=== PATIENT | female | born 2000 | race Asian ===

== ENCOUNTER 2020-02-03 19:28 | Emergency (ER) | payer OTHER, MEDICAID, SELFPAY ==
[2020-02-03 19:29] VITALS: BP 129/74; PULSE 90; RESP 16; TEMP 35.3; O2SAT 99; BMI 23.6
--- NOTE | 2020-02-03 20:03 | ED.DCSUM_ITS ---
History of Present Illness Chief Complaint: General Illness Detail of Chief Complaint: I need a test for strep, Covid, and STDs Informant: Patient Narrative: Patient presents with cough for the past couple of days. No fever or chills. She states her friends believe she may have Covid and she is questing a test. She also states that she has a slight hoarse voice and her friends also think she has strep and she is requesting a strep test. She also requests STD testing today that she is a vaginal odor but no discharge. She does have a history of STDs. Her last menstrual cycle was last week. Past Medical History - Allergies and Home Meds Allergies/Adverse Reactions: Allergies No Known Allergies Allergy (Verified 02/03/20 19:31) Primary Care Physician: NOT,DEFINED [Primary Care Provider] - Past Medical History: None Review of Systems General: Denies: Chills, Fever Eyes: Denies: Visual changes - bilaterally ENT: Reports: - - Hoarse voice. Denies: Bilateral ear pain Cardiovascular: Denies: Chest pain Respiratory: Reports: Cough. Denies: Dyspnea Gastrointestinal: Denies: Abdominal pain Musculoskeletal: Denies: Swelling, Extremity Pain Skin: Denies: Rash Neurological: Denies: Headache Hematologic: Denies: Easy bruising, Easy bleeding Allergy: Denies: Uticaria Physical Exam Vital Signs/Narrative: Vital Signs Temp Pulse Resp BP Pulse Ox 02/03/20 19:29 95.6 F L 90 16 129/74 H 99 Inital Vital Signs reviewed: Yes General: Well nourished, Well developed Head: Normocephalic ENT: Moist mucous membranes, - - 2+ bilateral tonsils with mild erythema. Uvula midline. Patient tolerating secretions well and has a strong voice. Neck: Supple Cardiovascular: Regular rate, Regular rhythm Respiratory: No distress, CTA bilaterally Abdomen: Soft, Nontender Skin: Normal color Neurological: Alert, Oriented x3 Psychological: Normal affect Diagnostic/Tx/Re-eval - Medical Decision Making Patient be swabbed for strep and Covid and urine will be sent for STD testing. Advised her that this would take a couple hours for all test results to come ba ck. We will let her go home at this time and call her with any positive test results. She will be referred to local PCP to establish primary care. ED Disposition - Plan for ED Patient: Disposition: Home or Assisted Living Diagnosis: URI (upper respiratory infection) Instructions: ED URI Viral Referrals: Nona Turner MD [STAFF PHYSICIAN] - As soon as possible
--- NOTE | 2020-02-03 22:09 | ED.RN ---
this nurse called pt and updated pt on negative results for covid and strep, per Dr. Ruby, and pt [facility] urine chlamydia and gonorrhea testing. pt verbalized adequate understanding.
== END 2020-02-03 20:29 | disposition home or self-care (01) ==
LOC: ED 20:29
PROVIDERS: Emergency Provider Emergency Medicine
DX: J06.9 Acute upper respiratory infection, unspecified (principal)
CPT/HCPCS: 87426; 87880; 99282

== ENCOUNTER 2020-02-11 13:05 | Emergency (ER) | payer OTHER, MEDICAID, SELFPAY ==
[2020-02-11 13:07] VITALS: BP 150/76; PULSE 92; RESP 17; TEMP 36.2; O2SAT 97; BMI 52.2
--- NOTE | 2020-02-11 13:37 | ED.DCSUM_ITS ---
- ER Visit Summary Date of Service: 02/11/20 Chief Complaint: Vaginal discharge History of Present Illness: The patient is a 19 F on triage complaint of vaginal discharge. She was taken to the bathroom to give a urine sample. Following placing this on the counter she walked into the emergency department. I was unable to get any other history. Physical Examination: Vital signs are 97.2, 150/76, 92, 17, 97% on room air. I did see the patient ambulate. Her gait was not ataxic. She not appear in any distress. Test Results: Despite patient left I did send gonorrhea and chlamydia on her urine as well as a test. Those are pending. Emergency Department Course and Treatment: Patient left prior to me even talking to her. Treatment Plan: If her , gonorrhea, or chlamydia are positive she will be contacted. Disposition: Left prior to completion of treatment Impression: 1. Vaginal discharge. 2. Left prior to completion of treatment. This note was generated with [employer] dictation software. It may contain incorrect words, spelling, and punctuation that were not noted in review of the chart prior to signing ED Disposition - Plan for ED Patient: Referrals: Care Physician,No Primary [Primary Care Provider] -
--- NOTE | 2020-02-11 13:40 | ED.RN ---
THIS NURSE CONTACTED THE PT BECAUSE WE WERE UNABLE TO LOCATE HER. PT STATES I WAS IN A HURRY. PER PT, I'LL JUST COME BACK LATER WHEN IT IS MORE CONVENIENT FOR ME
--- NOTE | 2020-02-11 13:45 | ED.RN ---
PT LEFT DEPT PRIOR TO MD AND RN COMPLETING ASSESSMENT.
[2020-02-11 14:05] LABS: Internal QC Validated? YES +Cl - CLEAR BKGD; Pregnancy, Urine Negative Negative
[2020-02-11 16:00] LABS: Chlamydia Trachomatis by PCR Negative (Negative); Neisserai gonorrhoeae by PCR Negative (Negative); Probe Check PASS; Sample Adequacy Control PASS; Specimen Processing Control PASS
== END 2020-02-11 13:48 | disposition left against medical advice (07) ==
LOC: ED 13:39
PROVIDERS: Emergency Provider Emergency Medicine
DX: N89.8 Other specified noninflammatory disorders of vagina (principal); Z53.29 Procedure and treatment not carried out because of patient's decision for other reasons
CPT/HCPCS: 81025; 87491; 87591; 99282

== ENCOUNTER 2020-02-11 21:51 | Emergency (ER) | payer OTHER, MEDICAID, SELFPAY ==
[2020-02-11 13:07] VITALS: BMI 52.2
[2020-02-11 21:51] VITALS: BP 144/82; PULSE 80; RESP 18; TEMP 35.8; O2SAT 98; BMI 23.8
--- NOTE | 2020-02-11 22:23 | ED.VIS.GEN ---
History of Present Illness Chief Complaint: Female C/O Informant: Patient Onset: Days Context: Gradual Onset Timing: Continuous Current Severity: Moderate Maximum Severity: Moderate Narrative: Patient is an otherwise healthy 19-year-old female presents with vaginal discharge. The patient states that been going on for a few days. She states she has been positive for chlamydia in the past. She was actually seen here earlier and eloped prior to completion of her results. I was able to review the results. Gonorrhea and Chlamydia were negative. She denies fevers or chills. She also negative . She is not found anything that improve her symptoms. Prior similar symptoms: No Recent Illness/Hospitalization: No Past Medical History - Allergies and Home Meds Allergies/Adverse Reactions: Allergies No Known Allergies Allergy (Verified 02/11/20 13:06) Primary Care Physician: Care Physician,No Primary [Primary Care Provider] - Prior records reviewed: Yes Past Medical History: None Surgical History: noncontributory Smoking Status: Current some day smoker Review of Systems General: Denies: Chills, Fever, Sweats Eyes: Denies: Visual changes - bilaterally, Diplopia ENT: Denies: Rhinorrhea, Sore throat Cardiovascular: Denies: Chest pain, Palpitations Respiratory: Denies: Dyspnea, Cough, Dyspnea on exertion Gastrointestinal: Denies: Abdominal pain, Nausea, Vomiting, Diarrhea, Melena, Hematochezia Genitourinary: Denies: Dysuria, Hematuria, Frequency Musculoskeletal: Denies: Back pain, Extremity Pain Skin: Denies: Rash, Wounds Neurological: Denies: Headache, Weakness, Numbness Physical Exam Vital Signs/Narrative: Vital Signs Temp Pulse Resp BP Pulse Ox 02/11/20 21:51 96.5 F L 80 18 144/82 H 98 Inital Vital Signs reviewed: Yes General: Well nourished, Well developed, No Acute Distress Head: Normocephalic, Atraumatic Eyes: Perrl, EOMI ENT: Moist mucous membranes, No rhinorrhea Neck: Supple, Nontender Cardiovascular: Regular rate, Regular rhythm, No murmurs Respiratory: No distress, CTA bilaterally, Chest nontender Abdomen: Soft, Nontender, Nondistended, Normal bowel sounds Back: Nontender, Normal Inspection Extremities: Nontender, No edema Skin: Normal color, No rash Neurological: Alert, Oriented x3, Cranial nerves II-XII grossly intact, Normal Strength, Normal Sensation Psychological: Normal affect, Normal Mood Diagnostic/Tx/Re-eval - Medical Decision Making Patient is well-appearing. She presents with vaginal discharge. Her abdomen is soft and nontender. She refused pelvic exam. I did review her labs from earlier. She was not . Gonorrhea and Chlamydia were negative. She states that she has had bacterial vaginosis in the past. She was treated with Flagyl. She will be discharged home. Impression 1. Bacterial vaginosis ED Disposition - Plan for ED Patient: Instructions: Vaginal Infection: Bacterial Vaginosis Prescriptions: Metronidazole [Flagyl] 500 mg PO BID #14 tab Prescription Printed Referrals: Care Physician,No Primary [Primary Care Provider] -
== END 2020-02-11 22:31 | disposition home or self-care (01) ==
LOC: ED 22:28
PROVIDERS: Emergency Provider Emergency Medicine
DX: N76.0 Acute vaginitis (principal); B96.89 Other specified bacterial agents as the cause of diseases classified elsewhere; F17.200 Nicotine dependence, unspecified, uncomplicated

== ENCOUNTER 2020-10-01 12:23 | Emergency (ER) | payer BC, SELFPAY ==
[2020-10-01 12:24] VITALS: BP 124/81; PULSE 98; RESP 16; TEMP 36.6; O2SAT 97; BMI 26.6
--- NOTE | 2020-10-01 13:09 | EDS_ITS ---
HPI History of Present Illness Chief Complaint: Wound Check Informant: patient Onset/Context/Timing Onset: Weeks (1) Current Severity: Mild Maximum Severity: Mild Worsened by: lilibeth Narrative Narrative: Patient states she had plastic surgery about 3 weeks ago in [place], [place], a Maltese butt lift. For the past week, she has been concerned about a small surgical incision in her right groin that has not closed completely and she thinks it may be infected. She was told that the incisions should have closed within 2 weeks. She denies any systemic symptoms except for the past week or so she has had cold symptoms and she wants to have those evaluated as well. She denies any dyspnea, fevers, chills. She has never had Covid, she has never been vaccinated for it, and she has not been in contact with anyone that she knows of with Covid. She is here because her parents live here and she has no plans on going back to [place] to see the surgeon. PFSH PFSH no medical history Home Medications metronidazole 500 mg PO BID #14 tab 02/11/20 [Rx Last Taken Unknown] Allergy/AdvReac Type Severity Reaction Status Date / Time No Known Allergies Allergy Verified 02/11/20 13:06 Social History Smoking Status: Current some day smoker tobacco type: cigarettes ROS ROS ED Constitutional Constitutional ED: Denies chills or fever(s) Eyes Eyes: Denies change in vision or diplopia ENT ENT ED: Reports nasal congestion, rhinorrhea and other Details: R ear popping ; Denies sore throat Cardiovascular Cardiovascular: Denies chest pain or palpitations Respiratory/Chest Respiratory/Chest: Reports cough; Denies dyspnea Gastrointestinal Gastrointestinal: Denies abdominal pain, diarrhea, nausea or vomiting Genitourinary Genitourinary ED: Denies dysuria or hematuria Musculoskeletal Musculoskeletal: Denies back pain or neck pain Integumentary Reports as per HPI and wounds; Denies abscess or rash Neurologic Neurologic: Denies headache(s), paresthesias or weakness Psychiatric Psychiatric: Denies anxiety or suicidal thoughts EXAM Physical Exam Const Vital Signs: 10/01/20 12:24 Temperature 97.9 F Temperature Source Temporal Pulse Rate 98 Respiratory Rate 16 Blood Pressure 124/81 H Blood Pressure Mean 95 Pulse Ox 97 Oxygen Delivery Method Room Air Positive well nourished and well developed General Appearance ED: well developed and NAD HEENT Reports moist mucous membranes HEENT Narrative: Clear nasal congestion with mild nasal turbinate edema and no purulent discharge. No sinus tenderness. normocephalic and atraumatic Mouth ED: No trismus Mouth: No trismus Throat: posterior oropharynx normal and uvula midline Eyes PERRL and EOMs intact bilaterally Neck full ROM and supple Resp normal respiratory effort and clear to auscultation bilaterally Cardio regular rate, regular rhythm and no murmurs GI non-tender and non-distended Auscultation: normoactive bowel sounds Palpation: soft Back/Spine no CVA tenderness General Back: other FROM Extremity normal to inspection General Extremety ED: Negative for edema, pulses abnormal or tenderness General Extremity: Negative for edema or pulses abnormal Neuro oriented x3, CN's II-XII intact bilaterally and no sensory deficits noted Sensorium / Orientation: awake and alert Motor Exam: strength 5/5 throughout Skin no rashes or lesions noted Skin Narrative: Patient has a very small 0.5 cm superficial surgical incision in her right groin that is nontender, almost closed but not quite, there is no suture present that is visible, there is minor erythema around the incision consistent with a healing wound, and there is no purulent discharge or other discharge expressible. No abscess. No induration around the wound. MDM MDM MDM Narrative Medical decision making narrative: Patient was reassured with regards to her surgical wound, it is not infected. It just needs to have continuous dressing changes to ensure that it heals without getting infected, by secondary intent. We dressed it with some antibiotic ointment. With regards to her upper respiratory tract infection, I advised her that she does not have pneumonia clinically and her vital signs are normal, but I would recommend a Covid test which she was agreeable to. It was negative. She was discharged stable condition, encouraged to follow-up with her surgeon even though she states she does not want to. If she has any issues she is welcome to come back to the ER. Discharge Plan Triage Chief Complaint: Wound Check ED Provider: Anthony Romero Dx/Rx/DC Orders Clinical Impression: Visit for wound check, Viral upper respiratory tract infection Instructions: ED Wound Check (No Infection) Prescriptions: No Action metronidazole 500 MG tablet 500 mg PO BID Qty: 14 RF: 0 Primary Care Provider: Cathi Padilla [facility] Referrals: Cathi Padilla NP, [facility] [Primary Care Provider] - As Needed Disposition Disposition: Home, Self Care
[2020-10-01 13:58] VITALS: BP 127/81; PULSE 73; RESP 12; O2SAT 99
== END 2020-10-01 13:58 | disposition home or self-care (01) ==
PROVIDERS: Emergency Provider Emergency Medicine; PCP Nurse Practitioner Family
DX: Z48.00 Encounter for change or removal of nonsurgical wound dressing (principal); J06.9 Acute upper respiratory infection, unspecified; F17.210 Nicotine dependence, cigarettes, uncomplicated
CPT/HCPCS: 87426; 99283

== ENCOUNTER 2020-12-01 12:46 | Emergency (ER) | payer BC, SELFPAY ==
[2020-12-01 12:46] VITALS: BP 113/89; PULSE 102; RESP 18; TEMP 36.9; O2SAT 96; BMI 25.7
[2020-12-01 13:07] LABS: Internal QC Validated? YES +Cl - CLEAR BKGD; Pregnancy, Urine Negative Negative
--- NOTE | 2020-12-01 13:22 | EX.ED.DYSGE1 ---
HPI History of Present Illness Chief Complaint: Cold Sx Informant: patient Narrative Narrative: 20-year-old female presents the emergency room with 1 week of Covid symptoms. She notes loss of taste and smell cough runny nose a bit of sore throat diarrhea. No reported fevers. She also states that she would like a test because her periods have been irregular. She has not taken a home test. She has not contacted her local doctor to arrange outpatient testing. PFSH PFSH Medical History no medical history Home Medications metronidazole 500 mg PO BID #14 tab 02/11/20 [Rx Last Taken Unknown] Allergy/AdvReac Type Severity Reaction Status Date / Time No Known Allergies Allergy Verified 12/01/20 12:48 Social History (Updated 12/01/20 @ 13:[address] Barry Aaron, DO) Smoking Status: Current some day smoker tobacco type: cigarettes substance use type: does not use ROS ROS ED Constitutional Constitutional ED: Denies chills or weight loss Eyes Eyes: Denies change in vision or diplopia ENT ENT ED: Reports rhinorrhea and sore throat; Denies ear pain Cardiovascular Cardiovascular: Denies chest pain, orthopnea, palpitations or racing heartbeat Respiratory/Chest Respiratory/Chest: Reports cough; Denies dyspnea or orthopnea Gastrointestinal Gastrointestinal: Reports nausea; Denies abdominal pain, diarrhea or vomiting Genitourinary Genitourinary ED: Denies dysuria, hematuria or urinary frequency Musculoskeletal Musculoskeletal: Reports myalgias; Denies arthralgias Integumentary Denies abscess or rash Neurologic Neurologic: Denies headache(s) or weakness Psychiatric Psychiatric: Denies anxiety, depression, suicidal ideation or suicidal thoughts Endocrine Endocrinology: Denies polydipsia, polyphagia or polyuria Allergic/Immunologic Allergic/Immunologic ED: Denies mouth swelling, tongue swelling or urticaria EXAM Physical Exam Const Vital Signs: 12/01/20 12:46 12/01/20 13:08 Temperature 98.5 F Temperature Source Temporal Pulse Rate 102 H Respiratory Rate 18 Respiratory Effort Normal Non-Labored Respiratory Pattern Normal Blood Pressure 113/89 H Blood Pressure Mean 97 Pulse Ox 96 Oxygen Delivery Method Room Air Positive well nourished and well developed General Appearance ED: well developed HEENT Reports normocephalic, head/scalp atraumatic and moist mucous membranes Eyes PERRL and EOMs intact bilaterally Neck no lymphadenopathy, supple and no JVD Resp normal respiratory effort and clear to auscultation bilaterally Cardio regular rate, regular rhythm and no murmurs GI normal to inspection, nondistended, normoactive bowel sounds and non-tender Palpation: soft Back/Spine no CVA tenderness and normal ROM Extremity normal to inspection General Extremety ED: Negative for edema General Extremity: Negative for edema Neuro oriented x3 and CN's II-XII intact bilaterally Sensorium / Orientation: alert Motor Exam: strength 5/5 throughout Psych mental status grossly normal Mood & Affect: Negative for depressed or tearful Skin no rashes or lesions noted and no wounds MDM MDM MDM Narrative Medical decision making narrative: Patient's test is negative. Her rapid Covid is also negative. But her symptomology is very Covid related. We are going to order a Covid PCR. I would not make her wait for the results. Lab Data Attestation: I reviewed the patient's lab results. Labs: Laboratory Results - last 24 hr 12/01/20 12:57 Urine Test Negative Discharge Plan Triage Chief Complaint: Cold Sx ED Provider: Barry Aaron Dx/Rx/DC Orders Clinical Impression: Viral upper respiratory tract infection Instructions: ED URI, Viral, No Abx (Adult) Prescriptions: No Action metronidazole 500 MG tablet 500 mg PO BID Qty: 14 RF: 0 Primary Care Provider: Cathi Padilla NP Referrals: Cathi Padilla NP, [facility] [Primary Care Provider] - As Needed Disposition Disposition: Home, Self Care
== END 2020-12-01 13:51 | disposition home or self-care (01) ==
LOC: ED 13:45
PROVIDERS: Emergency Provider Emergency Medicine; PCP Nurse Practitioner Family
DX: J06.9 Acute upper respiratory infection, unspecified (principal); F17.210 Nicotine dependence, cigarettes, uncomplicated
CPT/HCPCS: 81025; 87426; 87635; 99282; U0005; U0003